=== PATIENT | male | born 2000 | race Caucasian/White ===

== ENCOUNTER 2018-03-10 19:07 | Emergency (ER) | payer BC ==
[~2018-03-10] VITALS: Ht 185.4 cm; Wt 86.2 kg
[~2018-03-10 19:07] MED LIST: HYDR-3729 PO; MULT-35 PO
--- OUTSIDE RECORDS SUMMARY | 2018-03-10 19:13 | XMS REPORT ---
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 Role Phone CONNOR GRANT Unavailable PROBLEMS Unknown Problems ALLERGIES No Information ENCOUNTERS Encounter Location Date Diagnosis [facility] [address] [facility] [id number] [address] Aug, Encounter for immunization Z23 IMMUNIZATIONS Vaccine Route Administration Date Status MENINGOCOCCAL (MENVEO) IM Intramuscular September 17, 2016 Administered SOCIAL HISTORY Never Assessed REASON FOR VISIT 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
--- OUTSIDE RECORDS SUMMARY | 2018-03-10 19:13 | XMS REPORT ---
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 Role Phone MURPHY AGUILERA Unavailable PROBLEMS Unknown Problems ALLERGIES No Known Allergies ENCOUNTERS Encounter Location Date Diagnosis [facility] [address] [facility] [id number], [place] [address] Jun, Sore throat J02.9 [facility] [address] [facility] [id number], [place] [address] Aug, Encounter for immunization Z23 IMMUNIZATIONS No Known Immunizations SOCIAL HISTORY Never Assessed REASON FOR VISIT Vomiting Pt c/o sore throat, fever, headache and vomiting for several days FANNY Olvera PLAN OF CARE Activity Details Follow Up prn Reason: VITAL SIGNS Weight 197.2 lbs 2017-06-29 Temperature 99.9 degrees Fahrenheit 2017-06-29 Heart Rate 88 bpm 2017-06-29 Respiratory Rate 18 2017-06-29 Blood pressure systolic 122 mmHg 2017-06-29 Blood pressure diastolic 64 mmHg 2017-06-29 MEDICATIONS Medication Instructions Dosage Frequency Start Date End Date Duration Status Amoxicillin 500 MG Orally every 12 hrs 1 capsule 12h Jun, Jun, 10 day(s) Active RESULTS No Results PROCEDURES Procedure Date Ordered Result Body Site STREP A ASSAY W/OPTIC June 29, 2017 CULTURE, BACTERIA, OTHER June 29, 2017 INSTRUCTIONS MEDICATIONS ADMINISTERED No Known Medications
--- OUTSIDE RECORDS SUMMARY | 2018-03-10 19:13 | XMS REPORT | Continuity of Care Document ---
Author Author [facility] Organization [facility] Address Unknown Phone Unavailable Allergies Active Description Code Type Severity Reaction Onset Reported/Identified Relationship to Patient Clinical Status Yes amoxicillin [id number] Drug Allergy Unknown N/A 08/14/2005 Yes cefpodoxime [id number] Drug Allergy Unknown N/A 08/14/2005 Medications There is no data. 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 06/29/2012 Ot E000.8 OTHER EXTERNAL CAUSE STATUS 06/29/2012 Ot E007.6 ACTIVITIES INVOLVING BASKETBALL 06/29/2012 Ot E928.9 ACCIDENT NOS 03/30/2015 RICHIE ROSS MD R Ot R09.89 03/30/2015 RICHIE ROSS MD R Ot R09.89 03/30/2015 RICHIE ROSS MD R Ot R09.89 04/11/2015 RICHIE ROSS MD R Ot R09.89 08/03/2015 RICHIE ROSS MD Ot R09.89 OTH SYMPTOMS AND SIGNS INVOLVING THE CIR 08/03/2015 IZAIAH CALLES MD Ot K35.80 UNSPECIFIED ACUTE APPENDICITIS 08/08/2015 IZAIAH CALLES MD Ot K35.80 UNSPECIFIED ACUTE APPENDICITIS 08/10/2015 IZAIAH CALLES MD Ot K35.80 UNSPECIFIED ACUTE APPENDICITIS 08/14/2015 IZAIAH CALLES MD Ot K35.80 UNSPECIFIED ACUTE APPENDICITIS 08/31/2015 IZAIAH CALLES MD Ot K35.80 UNSPECIFIED ACUTE APPENDICITIS 08/31/2015 RICHIE ROSS MD Ot R09.89 OTH SYMPTOMS AND SIGNS INVOLVING THE CIR 02/18/2016 RICHIE ROSS MD Ot R09.89 OTH SYMPTOMS AND SIGNS INVOLVING THE CIR 11/18/2016 RICHIE ROSS MD Ot R09.89 OTH SYMPTOMS AND SIGNS INVOLVING THE CIR Procedures There is no data. Results There is no data. Encounters ACCT No. Visit Date/Time Discharge Status Pt. Type Provider Facility Loc./Unit Complaint [id number] 08/03/2015 03:04:00 08/03/2015 19:30:00 DIS Outpatient IZAIAH CALLES MD [facility] ACUTE APPENDICITIS [id number] 03/28/2015 10:58:00 03/28/2015 23:59:59 CLS Outpatient RICHIE ROSS MD [facility] RAD SOUNDS IN RIGHT CHEST [id number] 06/29/2012 18:53:00 Document Registration
[2018-03-10] MEDS ORDERED: LIDOCAINE 1% INJ 20 ML 20 ML VIAL INJ ONE (20:00)
[2018-03-10] MEDS ORDERED: TETANUS,DIPTH,PERTUSS P/F (BOOSTRIX) 0.5 ML VIAL IM ONE (20:00)
--- NOTE | 2018-03-10 20:06 | ED Upper Extremity ---
General Chief Complaint: Laceration Stated Complaint: L HAND INJ Nursing Triage Note: PATIENT HERE AFTER BLOCKING A BASKETBALL WHEN HIS LEFT INDEX FINGER BENT BACKWARDS AND SPLIT. LACERATION TO MIDDLE OF FINGER. Source: patient, family (mother and father) Exam Limitations: no limitations History of Present Illness Date Seen by Provider: Mar 10, 2018 Time Seen by Provider: 19:40 Initial Comments Patient is a 17-year-old male who presents to emergency room with complaints of laceration to his PIP joint of his left index finger after being hit in the finger with a basketball. He denies being up-to-date on tetanus vaccine. Laceration is 2 cm in length. The images for location. Allergies and Home Medications Allergies Coded Allergies: amoxicillin (Verified Allergy, Unknown, 08/14/05) cefpodoxime (Verified Allergy, Unknown, 08/14/05) Home Medications Hydrocodone/Acetaminophen 1 Each Tablet, 1-2 EACH PO Q4H Prescribed by: IZAIAH CALLES on 08/03/15 1107 Multivitamin 1 Each Tablet, 1 TAB PO DAILY, (Reported) Past Neloskn-Uzhhqh-Yokjil Hx Patient Social History Alcohol Use: Occasionally Uses Recreational Drug Use: No Smoking Status: Never a Smoker 2nd Hand Smoke Exposure: No Recent Foreign Travel: No Contact w/Someone Who Travel: No Recent Infectious Disease Expo: No Ebola Symptoms: Denies Symptoms Listed Physical Abuse: No Sexual Abuse: No Immunizations Up To Date Tetanus Booster (TDap): Unknown Seasonal Allergies Seasonal Allergies: No Past Medical History Surgeries: Yes (hernia repair) Abdominal Respiratory: No Cardiac: No Neurological: No Reproductive Disorders: No Sexually Transmitted Disease: No HIV/AIDS: No Gastrointestinal: No Musculoskeletal: No Endocrine: No Cancer: No Psychosocial: No Integumentary: No Blood Disorders: No Adverse Reaction/Blood Tranf: No Family Medical History Patient reports no known family medical history. Physical Exam Vital Signs Vital Signs - First Documented 03/10/18 19:15 Temp 97.6 Pulse 77 Resp 18 B/P (MAP) 129/67 Capillary Refill : Height, Weight, BMI Height: 6'1.00" Weight: 190lbs. 0oz. 86.773561nj; 21.09 BMI Method:Stated Progress/Results/Core Measures Results/Orders My Orders Orders - STEVE CALDERON Lidocaine 1% Inj 20 Ml (Xylocaine 1% Inj (03/10/18 20:00) Dipht,Pertuss(Acell),Tet Adult (Boostrix (03/10/18 20:00) Finger(S) (03/10/18 19:47) Medications Given in ED Current Medications Medications Dose Ordered Sig/Satish Route Start Time Stop Time Status Last Admin Dose Admin Diphtheria/ Tetanus/Acell Pertussis 0.5 ml ONCE ONCE IM 03/10/18 20:00 03/10/18 20:01 DC 03/10/18 20:09 0.5 ML Vital Signs/I&O 03/10/18 19:15 Temp 97.6 Pulse 77 Resp 18 B/P (MAP) 129/67 Departure Impression Primary Impression: Laceration Additional Impression: Fracture, finger, open Qualified Codes: S62.650B - Nondisplaced fracture of middle phalanx of right index finger, initial encounter for open fracture Disposition: HOME, SELF-CARE Condition: Stable/Unchanged Departure-Patient Inst. Decision time for Depature: 20:48 Referrals: RICHIE ROSS MD (PCP/Family) Primary Care Physician Patient Instructions: Finger Fracture (DC), Laceration Repair With Stitches (DC ) Add. Discharge Instructions: Take medication as directed. You may use ibuprofen and Tylenol as directed by the bottle for pain relief. Ice to the sore areas at 20 minute intervals. Wear the splint at all times until the wound is healed. Sutures out in 7 days. Watch for signs of infection such as increased redness, swelling, drainage, pain. Follow-up with her primary care provider within 1 week for recheck. Return back to the emergency room to have the sutures removed, worsening symptoms, or any other concerns as needed. All discharge instructions reviewed with patient and/ or family. Voiced understanding. Scripts Cephalexin (Keflex) 500 Mg Capsule 500 MG PO TID for 7 Days, #21 CAP Prov: STEVE CALDERON 03/10/18 Images Extremities-Upper 1 - Laceration STEVE CALDERON Mar 10, 2018 20:06
--- NOTE | 2018-03-10 20:33 | Diagnostic Imaging Report ---
Clinical indication: Patient jammed finger going for a pass during basketball game and now has laceration of proximal interphalangeal joint of second digit. Exam: X-ray of the left second finger, 3 views. Comparison: None. Findings: There are small distracted fracture fragments involving the dorsal and volar aspects of the base of the second middle phalanx. The fracture fragments are distracted and concern for intra-articular extension dorsally. There is soft tissue swelling adjacent to the region. There is no dislocation of the joint. There is no other fracture or dislocation seen. Impression: There are small distracted fracture fragments involving the dorsal and volar aspect of the base of the second middle phalanx with concern for intra-articular extension seen dorsally. There is soft tissue swelling adjacent to the region. Dictated by: Dictated on workstation # [id number]
[2018-03-10] MEDS ORDERED: CEPH-507 PO (20:52)
[2018-03-10] MEDS ORDERED: RX-HYDROCODONE/APAP 5/325 MG #4 TAB PK PO PRN (21:00)
[2018-03-10] MEDS ORDERED: CEPHALEXIN 250 MG (KEFLEX) CAP PO ONE (21:00)
== END 2018-03-10 21:12 | disposition home or self-care (01) ==
LOC: EDUNIT# 19:07 → ER 19:09
DX: S62.650B Nondisplaced fracture of middle phalanx of right index finger, initial encounter for open fracture (principal); Z88.1 Allergy status to other antibiotic agents; Z98.890 Other specified postprocedural states; W22.8XXA Striking against or struck by other objects, initial encounter; Y93.67 Activity, basketball
CPT/HCPCS: 73140; 90471; 90715

== ENCOUNTER 2018-03-19 12:55 | Day surgery (SDC) | payer BC ==
[~2018-03-19] VITALS: Ht 185.4 cm; Wt 83.9 kg
[~2018-03-19 12:55] MED LIST changes: +CEPH-507 PO
--- NOTE | 2018-03-19 12:57 | Progress Note-Pre Operative ---
Pre-Operative Progress Note H&P Reviewed The H&P was reviewed, patient examined and no changes noted. Date Seen by Provider: Mar 19, 2018 Time Seen by Provider: 13:00 Date H&P Reviewed: Mar 19, 2018 Time H&P Reviewed: 13:00 Pre-Operative Diagnosis: Post-op Tonsil Bleed RADHA WESLEY MD Mar 19, 2018 12:57
[2018-03-19] MEDS ORDERED: DEXAMETHASONE 10 MG/ML (DECADRON) 1 ML VIAL ONE (13:31)
[2018-03-19] MEDS ORDERED: proPOfol 200 MG/20 ML (DIPRIVAN) VIAL IV ONE (13:31)
[2018-03-19] MEDS ORDERED: LIDOCAINE PF 2% 5 ML (XYLOCAINE) VIAL ONE (13:31)
[2018-03-19] MEDS ORDERED: ONDANSETRON 4 MG/2 ML (SDV) Z0FRAN ONE (13:31)
[2018-03-19] MEDS ORDERED: ROCURONIUM 10 MG/ML 5 ML SYRINGE IV ONE (13:31)
[2018-03-19] MEDS ORDERED: SUCCINYLCHOLINE INJ 100 MG/5 ML SYR ONE (13:31)
[2018-03-19] MEDS ORDERED: SEVOFLURANE (ULTANE) 15 ML INHAL SOLN ONE (13:31)
[2018-03-19] MEDS ORDERED: MIDAZOLAM 2 MG/2 ML (VERSED) VIAL ONE (13:32)
[2018-03-19] MEDS ORDERED: fentaNYL INJECTION 100 MCG/2 ML AMP ONE (13:32)
[2018-03-19 13:35] LABS: BASOPHILS % (AUTO) 0 % (0-10); EOSINOPHILS % (AUTO) 0 % (0-10); HEMATOCRIT 43 % (40-54); HEMOGLOBIN 14.3 G/DL (13.3-17.7); LYMPHOCYTES # (AUTO) 0.8 X 10^3 (1.0-4.0); LYMPHOCYTES % (AUTO) 6 % (12-44); MEAN CORPUSCULAR HEMOGLOBIN 29 PG (25-34); MEAN CORPUSCULAR HGB CONC 33 G/DL (32-36); MEAN CORPUSCULAR VOLUME 86 FL (80-99); MEAN PLATELET VOLUME 11.3 FL (7.4-10.4); MONOCYTES # (AUTO) 0.3 X 10^3 (0.0-1.0); MONOCYTES % (AUTO) 2 % (0-12); NEUTROPHILS # (AUTO) 13.7 X 10^3 (1.8-7.8); NEUTROPHILS % (AUTO) 92 % (42-75); PLATELET COUNT 181 10^3/uL (130-400); RED BLOOD COUNT 4.98 10^6/uL (4.35-5.85); RED CELL DISTRIBUTION WIDTH 12.7 % (10.0-14.5); WHITE BLOOD COUNT 14.9 10^3/uL (4.3-11.0)
[2018-03-19 14:00] LABS: BAND NEUTROPHILS 2 %; LYMPHOCYTES % (MANUAL) 7 %; MONOCYTES % (MANUAL) 1 %; NEUTROPHILS % (MANUAL) 90 %; RBC MORPH NORMAL
[2018-03-19 14:10] VITALS: BP 107/78
[2018-03-19] MEDS ORDERED: LACTATED RINGERS 1,000 ML IV PRN (14:12)
--- NOTE | 2018-03-19 14:38 | Progress Note-Post Operative ---
Post-Operative Progess Note Surgeon (s)/Entertainment Manager (s) Surgeon RADHA WESLEY MD Entertainment Manager n/a Pre-Operative Diagnosis Post-op Tonsil Bleed Post-Operative Diagnosis same Post-Op Procedure Note Date of Procedure: Mar 19, 2018 Name of Procedure Performed: Repair of Post-op Tonsil Bleed Description & Findings Description and Findings: n/a Anesthesia Type get Estimated Blood Loss minimal Packing none. Specimen(s) collected/removed none RADHA WESLEY MD Mar 19, 2018 14:38
[2018-03-19] MEDS ORDERED: MEPERIDINE (DEMEROL) INJ 50 MG/ML IVP ONE (14:45)
[2018-03-19] MEDS ORDERED: APAP 325 MG/10.15 ML LIQ (TYLENOL) UDC PO PRN (14:45)
[2018-03-19] MEDS ORDERED: HYDROcodone/APAP 7.5MG-325 MG/15 ML (LORTAB) UDC PO PRN (14:45)
[2018-03-19] MEDS ORDERED: ONDANSETRON 4 MG/2 ML (SDV) Z0FRAN IVP PRN (14:45)
[2018-03-19] MEDS ORDERED: morphine INJ 10 MG/ML 1ML (SYR OR VIAL) IVP ONE (14:45)
[2018-03-19 15:35] VITALS: BP 105/67
[2018-03-19 16:05] VITALS: BP 103/62
[2018-03-19 16:35] VITALS: BP 100/61
[2018-03-19 17:30] VITALS: BP 100/61
== END 2018-03-19 17:30 | disposition home or self-care (01) ==
LOC: SDC 12:55
PROVIDERS: ATTEND Otolaryngology Otolaryngology/Facial Plastic Surgery
DX: J95.830 Postprocedural hemorrhage of a respiratory system organ or structure following a respiratory system procedure (principal)
CPT/HCPCS: 36415; 85007; 85027; 87081

== ENCOUNTER 2018-03-26 13:30 | Emergency (ER) | payer OTHER, BC | END 2018-03-26 13:37 | disposition home or self-care (01) | LOC: ER 13:30 ==